=== PATIENT | male | born 1950 | race Caucasian/White ===

== ENCOUNTER 2021-08-03 09:43 | Day surgery (SDC) | payer MEDICARE, OTHER, SELFPAY ==
[2021-07-28 12:24] VITALS: BMI 32.2
--- NOTE | 2021-07-29 14:31 | MHC.SHP ---
Pre-Procedural Eval Section A Date of Service: 07/30/21 The patient is an INPATIENT: No Changes since office visit: No Cold of Flu in the past 2 weeks, No New Medical Problems, No Changes in Medication and No Patient answered all questions The History & Physical has been completed within 30 days and I have reviewed it.: Yes Section B Chief Complaint: cataract right eye Allergies: Allergies Allergy/AdvReac Type Severity Reaction Status Date / Time propoxyphene [From Darvon] AdvReac Abdominal Verified 07/28/21 12:24 Pain Plan Diagnosis/Plan: Unchanged I have reviewed the history and physical and performed a pertinent physical examination on my patient. No changes have occurred unless specified.
[2021-08-03 11:28] VITALS: BP 183/101; PULSE 61; RESP 16; TEMP 36.4; O2SAT 97
--- NOTE | 2021-08-03 11:39 | P.CONAN_ITS ---
[facility] Past Medical History Medical History Arthritis CAD (coronary artery disease) Cataract Diabetes Elevated cholesterol Full dentures History of heartburn HTN (hypertension) Myocardial infarction Family History Family history of problems with anesthesia: No Surgical History Surgical History History of surgical removal of ganglion cyst Hx of cardiac cath Hx of heart artery stent Hx of hernia repair History of Problems with Anesthesia: No Social History Social History Are you a primary critical care nurse to a significant other at home: No Do you presently have visiting nurse or other home services: No Alcohol intake: current Alcohol intake frequency: holidays/special occasions only Patient Tobacco Use Status: Former Tobacco user Quit Date: 2010 Tobacco use type: Cigarette Use of substances other than those prescribed or required for medical reasons: No Are you DNR?: No Advance Directives: No (info mailed) Advance Directives Information Provided: No Advance Directives on File: No Poor oral hygiene: Yes (ill fitting upper and lower dentures) Meds Allergies Allergy/AdvReac Type Severity Reaction Status Date / Time propoxyphene [From Darvon] AdvReac Abdominal Verified 08/03/21 11:24 Pain Active Medications: Current Medications Lactated Ringer's (Lr) 500 mls @ 20 mls/hr IVCONT .Q24H GE Povidone Iodine (Povidone Iodine 5 % Ophth Soln 30 Ml Bottle) 1 appl EYE-RIGHT PREOP PRN PRN Reason: Pre-Op Surgical Implant Prophy Home Medications Medication Instructions Recorded Confirmed Last Taken Type aspirin 81 mg tablet,delayed 81 mg PO DAILY 07/28/21 08/03/21 08/02/21 History release atorvastatin 40 mg tablet 1 tab PO DAILY 07/28/21 07/28/21 Unknown History cholecalciferol (vitamin D3) 25 25 mcg PO DAILY 07/28/21 07/28/21 Unknown History mcg (1,000 unit) capsule (Vitamin D3) lisinopril 10 mg tablet 1 tab PO DAILY 07/28/21 07/28/21 Unknown History metformin 500 mg tablet 2 tab PO BID 07/28/21 08/03/21 08/02/21 History metoprolol succinate 100 mg 1.5 tab PO DAILY 07/28/21 08/03/21 08/03/21 History tablet,extended release 24 hr multivitamin 1 tab PO DAILY 07/28/21 07/28/21 Unknown History nitroglycerin 0.4 mg sublingual 0.4 mg SUBLINGUAL .Q5MINS PRN 07/28/21 07/28/21 Unknown History tablet Exam Exam Date and Time: August 03, 2021 1139 Height,Weight and Vital Signs: Height 5 ft 8 in Weight 96.162 kg Airway Mallampati Class: II TM Dist: >3cm Neck ROM: Full Assessment and Plan Assessment Anesthesia Assessment: Anesthesia Plan Discussed and Chart Reviewed Final Anesthetic Review Family History of Problems with Anesthesia: No History of Problems with Anesthesia: No NPO: Yes ASA Class: III Final Preanesthetic Review: No Changes in Pt Med Stat, Meds/Allgs Chart Reviewed, Consent Obtained/Reviewed and Anes Risks/Benef Reviewed Patient Risk: Intermediate Procedure Risk: Low Assessment/Block/Sedation in SS: Assess/Block/Sedation-SS Anesthetic Plan Anesthetic Plan: MAC: Disposition: Standard PACU
[2021-08-03] MEDS: Tropicamide 1 % Ophth Sol 3 ML BTL 1 DROP EYE-RIGHT ×3 (11:44→11:51)
[2021-08-03] MEDS: Tetracaine HCl/PF 0.5% Oph Sol 4 ML DROPS 1 DROP EYE-RIGHT (11:44)
[2021-08-03] MEDS: Lactated Ringers 500 ML 20 ML IVCONT (11:44)
[2021-08-03 11:46] LABS: Glucose, Whole Blood 149 mg/dL (60-115)
[2021-08-03] MEDS: Phenylephrine HCL 2.5% Oph SoL 2 ML BOTTLE 1 DROP EYE-RIGHT ×3 (11:47→11:53)
--- NOTE | 2021-08-03 12:34 | HO.PNOPHT ---
Ophthalmology Procedure Procedure Date of Service: 08/03/21 Ophthalmology Viscoelastic: Healboris Sut Dual Pack Pro Ophthalmology Lenses: TECEDITH [id number] (23) Procedure Notes: PREOPERATIVE DIAGNOSIS: Decreased visual acuity right eye secondary to cataract POSTOPERATIVE DIAGNOSIS: Same PROCEDURE: Right cataract extraction with intraocular lens insertion SURGEON: Ahmet Lo M.D. ANESTHESIA: Topical/MAC ESTIMATED BLOOD LOSS: None COMPLICATIONS: None After obtaining informed consent, the patient was brought to the operating room suite and placed in the supine position. After adequate sedation per anesthesia, topical drops of Tetracaine were given to the right eye. The eye was then prepped and draped in the usual sterile fashion. The operating room microscope was then positioned over the operative eye and a lid speculum placed. A paracentesis was created. Viscoelastic was then instilled into the anterior chamber. A three plane incision was then created temporally, utilizing a 2.85 mm keratome. Capsulotomy forceps were then utilized to create a circular tear capsulotomy. Hydrodissection and hydrodelineation were carried out until adequate mobilization of the nucleus occurred. Phacoemulsification was then utilized to remove the dense central nucleus followed by removal of the cortical material utilizing the automated aspiration irrigation unit. Viscoelastic was instilled into the posterior capsular bag followed by placement of a posterior chamber intraocular lens without difficulty. The residual Viscoelastic was then removed utilizing the automated IA machine. The wound was checked and found to be watertight. The patient tolerated the procedure well and the lid speculum was removed. Intracameral injection of Vigamox 0.1 mL followed by a subtenon injection of Kenalog-40 0.2 mL were administered. The patient will be seen in the a.m.
[2021-08-03 13:18] VITALS: BP 172/82; PULSE 62; RESP 18; TEMP 36.1; O2SAT 98
== END 2021-08-03 13:21 | disposition home or self-care (01) ==
PROVIDERS: PCP Internal Medicine; Visit Provider Ophthalmology
PROC: (CPT 66985; principal; 2021-08-03 13:00)
DX: H25.11 Age-related nuclear cataract, right eye (principal); H52.4 Presbyopia; I10 Essential (primary) hypertension; E11.9 Type 2 diabetes mellitus without complications; I25.10 Atherosclerotic heart disease of native coronary artery without angina pectoris; Z98.61 Coronary angioplasty status; Z87.891 Personal history of nicotine dependence; I25.2 Old myocardial infarction; Z79.82 Long term (current) use of aspirin; Z79.84 Long term (current) use of oral hypoglycemic drugs; Z79.899 Other long term (current) drug therapy
CPT/HCPCS: 66984; 82947; J3010; J3300; V2632

== ENCOUNTER 2021-08-17 10:20 | Day surgery (SDC) | payer MEDICARE, OTHER, SELFPAY ==
[2021-07-28 12:27] VITALS: BMI 32.2
--- NOTE | 2021-08-13 17:18 | MHC.SHP ---
Pre-Procedural Eval Section A Date of Service: 08/13/21 The patient is an INPATIENT: No Changes since office visit: No Cold of Flu in the past 2 weeks, No New Medical Problems, No Changes in Medication and No Patient answered all questions The History & Physical has been completed within 30 days and I have reviewed it.: Yes Section B Chief Complaint: cataract left eye Allergies: Allergies Allergy/AdvReac Type Severity Reaction Status Date / Time propoxyphene [From Darvon] AdvReac Abdominal Verified 08/03/21 11:24 Pain Plan Diagnosis/Plan: Unchanged I have reviewed the history and physical and performed a pertinent physical examination on my patient. No changes have occurred unless specified.
--- NOTE | 2021-08-14 10:50 | HO.ANESPROP2 ---
Documented by User: Adriana Maldonado NP 08/14/21 10:51 HPI - Anesthesia Eval Consult details Narrative: 71yo F for Left Cataract Extraction IOL Insertion PCP cleared Right eye 08/03/21 with MAC: Fent 50 PMFSH Past Medical History Medical History Arthritis CAD (coronary artery disease) Cataract Diabetes Elevated cholesterol Full dentures History of heartburn HTN (hypertension) Myocardial infarction Family History Family history of problems with anesthesia: No Surgical History Surgical History History of surgical removal of ganglion cyst Hx of cardiac cath Hx of heart artery stent Hx of hernia repair History of Problems with Anesthesia: No Social History Social History Are you a primary customer care coordinator to a significant other at home: No Do you presently have visiting nurse or other home services: No Alcohol intake: current Alcohol intake frequency: holidays/special occasions only Patient Tobacco Use Status: Former Tobacco user Quit Date: 2010 Tobacco use type: Cigarette Use of substances other than those prescribed or required for medical reasons: No Are you DNR?: No Advance Directives: No Advance Directives Information Provided: No (info mailed 07/28/2021) Advance Directives on File: No Meds Allergies Allergy/AdvReac Type Severity Reaction Status Date / Time propoxyphene [From Darvon] AdvReac Abdominal Verified 08/03/21 11:24 Pain Home Medications Medication Instructions Recorded Confirmed Last Taken Type aspirin 81 mg tablet,delayed 81 mg PO DAILY 07/28/21 08/03/21 08/02/21 History release atorvastatin 40 mg tablet 1 tab PO DAILY 07/28/21 07/28/21 Unknown History cholecalciferol (vitamin D3) 25 25 mcg PO DAILY 07/28/21 07/28/21 Unknown History mcg (1,000 unit) capsule (Vitamin D3) lisinopril 10 mg tablet 1 tab PO DAILY 07/28/21 07/28/21 Unknown History metformin 500 mg tablet 2 tab PO BID 07/28/21 08/03/21 08/02/21 History metoprolol succinate 100 mg 1.5 tab PO DAILY 07/28/21 08/03/21 08/03/21 History tablet,extended release 24 hr multivitamin 1 tab PO DAILY 07/28/21 07/28/21 Unknown History nitroglycerin 0.4 mg sublingual 0.4 mg SUBLINGUAL .Q5MINS PRN 07/28/21 07/28/21 Unknown History tablet Exam Exam Date and Time: August 14, 2021 1050 Height,Weight and Vital Signs: Height 5 ft 8 in Weight 96.162 kg Assessment and Plan Assessment Anesthesia Assessment: Chart Reviewed Final Anesthetic Review Family History of Problems with Anesthesia: No History of Problems with Anesthesia: No Documented by User: Curtis Haider MD 08/17/21 11:59 PMFSH Past Medical History Medical History Arthritis CAD (coronary artery disease) Cataract Diabetes Elevated cholesterol Full dentures History of heartburn HTN (hypertension) Myocardial infarction Surgical History Surgical History History of surgical removal of ganglion cyst Hx of cardiac cath Hx of heart artery stent Hx of hernia repair Social History Social History Are you a primary customer care coordinator to a significant other at home: No Do you presently have visiting nurse or other home services: No Alcohol intake: current Alcohol intake frequency: holidays/special occasions only Patient Tobacco Use Status: Former Tobacco user Quit Date: 2010 Tobacco use type: Cigarette Use of substances other than those prescribed or required for medical reasons: No Are you DNR?: No Advance Directives: No Advance Directives Information Provided: No (info mailed 07/28/2021) Advance Directives on File: No Meds Allergies Allergy/AdvReac Type Severity Reaction Status Date / Time propoxyphene [From Darvon] AdvReac Abdominal Verified 08/03/21 11:24 Pain Home Medications Medication Instructions Recorded Confirmed Last Taken Type aspirin 81 mg tablet,delayed 81 mg PO DAILY 07/28/21 08/03/2108/02/21 History release atorvastatin 40 mg tablet 1 tab PO DAILY 07/28/21 07/28/21 Unknown History cholecalciferol (vitamin D3) 25 25 mcg PO DAILY 07/28/21 07/28/21 Unknown History mcg (1,000 unit) capsule (Vitamin D3) lisinopril 10 mg tablet 1 tab PO DAILY 07/28/21 07/28/21 Unknown History metformin 500 mg tablet 2 tab PO BID 07/28/21 08/03/21 08/02/21 History metoprolol succinate 100 mg 1.5 tab PO DAILY 07/28/21 08/03/21 08/03/21 History tablet,extended release 24 hr multivitamin 1 tab PO DAILY 07/28/21 07/28/21 Unknown History nitroglycerin 0.4 mg sublingual 0.4 mg SUBLINGUAL .Q5MINS PRN 07/28/21 07/28/21 Unknown History tablet Exam Airway Mallampati Class: III TM Dist: >3cm Neck ROM: Full Denture: Upper and Lower Heart: [id number] Lungs: cta b/l Assessment and Plan Assessment Anesthesia Assessment: Anesthesia Plan Discussed Final Anesthetic Review NPO: Yes ASA Class: III Final Preanesthetic Review: No Changes in Pt Med Stat, Meds/Allgs Chart Reviewed, Consent Obtained/Reviewed and Anes Risks/Benef Reviewed Patient Risk: Intermediate Procedure Risk: Low Assessment/Block/Sedation in SS: Assess/Block/Sedation-SS Anesthetic Plan Anesthetic Plan: MAC: and Agree w/ Assess. and Plan Disposition: Standard PACU
[2021-08-17 11:35] VITALS: BP 161/81; PULSE 65; RESP 18; TEMP 36.8; O2SAT 97
[2021-08-17] MEDS: Tetracaine HCl/PF 0.5% Oph Sol 4 ML DROPS 1 DROP EYE-LEFT (11:43)
[2021-08-17] MEDS: Tropicamide 1 % Ophth Sol 3 ML BTL 1 DROP EYE-LEFT ×3 (11:44→11:51)
[2021-08-17 11:45] LABS: Glucose, Whole Blood 143 mg/dL (60-115)
[2021-08-17] MEDS: Phenylephrine HCL 2.5% Oph SoL 2 ML BOTTLE 1 DROP EYE-LEFT ×3 (11:46→11:53)
[2021-08-17] MEDS: Lactated Ringers 500 ML 50 ML IV (11:57)
--- NOTE | 2021-08-17 12:49 | HO.PNOPHT ---
Ophthalmology Procedure Procedure Date of Service: 08/17/21 Ophthalmology Viscoelastic: Healon Duet Dual Pack Pro Ophthalmology Lenses: TECNIS [id number] (23.5) Procedure Notes: PREOPERATIVE DIAGNOSIS: Decreased visual acuity left eye secondary to cataract POSTOPERATIVE DIAGNOSIS: Same PROCEDURE: Left cataract extraction with intraocular lens insertion SURGEON: Ahmet Lo M.D. ANESTHESIA: Topical/MAC ESTIMATED BLOOD LOSS: None COMPLICATIONS: None After obtaining informed consent, the patient was brought to the operation room suite and placed in the supine position. After adequate sedation per anesthesia, topical drops of Tetracaine were given to the left eye. The eye was then prepped and draped in the usual sterile fashion. The operating room microscope was then positioned over the operative eye and a lid speculum placed. A paracentesis was created. Viscoelastic was then instilled into the anterior chamber. A three plane incision was then created temporally, utilizing a 2.85 mm keratome. Capsulotomy forceps were then utilized to create a circular tear capsulotomy. Hydrodissection and hydrodelineation were carried out until adequate mobilization of the nucleus occurred. Phacoemulsification was then utilized to remove the dense central nucleus followed by removal of the cortical material utilizing the automated aspiration irrigation unit. Viscoat elastic was instilled into the posterior capsular bag followed by placement of a posterior chamber intraocular lens without difficulty. The residual Viscoat elastic was then removed utilizing the automated IA machine. The wound was check and found to be watertight. The patient tolerated the procedure well and the lid speculum was removed. Intracameral injection of Vigamox 0.1 mL followed by a subtenon injection of Kenalog-40 0.2 mL were administered. The patient will be seen in the a.m.
== END 2021-08-17 13:23 | disposition home or self-care (01) ==
PROVIDERS: PCP Internal Medicine; Visit Provider Ophthalmology
PROC: (CPT 66985; principal; 2021-08-17 13:00)
DX: H25.12 Age-related nuclear cataract, left eye (principal); H52.4 Presbyopia; I10 Essential (primary) hypertension; E78.00 Pure hypercholesterolemia, unspecified; E11.9 Type 2 diabetes mellitus without complications; Z79.84 Long term (current) use of oral hypoglycemic drugs; Z79.82 Long term (current) use of aspirin; Z79.899 Other long term (current) drug therapy; Z87.891 Personal history of nicotine dependence
CPT/HCPCS: 66984; 82947; J2250; J3010; J3300; V2632